=== PATIENT | male | born 1935 | race Caucasian/White ===

== ENCOUNTER → 2016-06-19 | Outpatient (CLI) | payer BC, MEDICARE ==
[~2016-06-19] MED LIST: ACET65TA; ASPI81TA83; BACITAB3 PO; CHLO25TA PO; DEXA2TA PO; DEXA4TA PO; DIOV160T6 PO; DIOV80TA; FISHCAP; IMMODIUM; LEVA750T PO; LEVO750T33 PO; LIPI20TA; MICR10CA PO; OXYC-517 PO; PROC10TA PO; SIMV20TA2 PO; TERA5CA PO; TERA5CAP; TERAZOSIN; THERGRAN; VIBR100C; VITMTA PO; [UNRECOGNIZED DRUG - OTHER] PO
--- NOTE | 2016-06-19 10:43 | REP ---
MRI BRAIN WITHOUT AND WITH CONTRAST: HISTORY: Glioblastoma. COMPARISON: 01/10/2016 and 04/03/2016. CONTRAST: ProHance 15 mL. The patient is status post right temporal craniotomy. A ring enhancing mass is present in the right temporal lobe. This measures 1.6 cm in transverse by 4.5 cm in AP by 2.2 cm in cephalocaudal dimensions and is unchanged in size compared to the previous study. The degree of enhancement is increased compared to the previous study. Increased signal intensity is present in the surrounding right temporal lobe. There is mass effect with partial effacement of the overlying cortical sulci. There is no midline shift. A 6 mm focus of enhancement is present in the anterior right parietal lobe. This is unchanged in size, however, the degree of enhancement is increased compared to the previous study. Increased signal intensity on T2-weighted images is present in the periventricular and subcortical white matter. This is likely secondary to chemo and/or radiation therapy. The ventricular system and cortical sulci are dilated consistent with mild volume loss. There is no extracerebral collection. Mucosal thickening is present in the maxillary sinuses. IMPRESSION: There has been no change in size of the right temporal lobe glioblastoma, however, the degree of enhancement is increased compared to the previous study. Signed by Raimundo Shukla MD 06/19/2016 10:45 A
== END ==
LOC: M RAD 09:06
PROVIDERS: ATTEND Specialist
DX: C71.9 Malignant neoplasm of brain, unspecified (principal)
CPT/HCPCS: 70553; A9576

== ENCOUNTER 2016-10-06 16:26 | Emergency (ER) | payer MEDICARE, OTHER ==
[~2016-10-06] VITALS: Ht 177.8 cm; Wt 73.5 kg
[2016-10-06] MEDS ORDERED: AMLO5TAB2 PO (16:34)
[2016-10-06] MEDS ORDERED: PANT40TA2 PO (16:36)
[2016-10-06 17:19] LABS: BASO % 0.1 % (0.0-1.0); EOS # 0.1 K/mm3 (0.0-0.50); EOS % 1.2 % (0.0-3.0); LARGE UNSTAINED CELL # 0.1 K/mm3 (0.0-0.4); LYMPH # 1.7 K/mm3 (1.5-4.5); MEAN CORPUSCULAR HEMOGLOBIN 30.6 pg (27.0-33.0); MEAN CORPUSCULAR HGB CONC 34.3 g/dl (32.0-36.5); MEAN CORPUSCULAR VOLUME 89.2 fl (80.0-96.0); MONO # 0.5 K/mm3 (0.0-0.8); MONO % 7.5 % (0.0-5.0); NEUTROPHILS # 4.3 K/mm3 (1.8-7.7); NEUTROPHILS % 64.2 % (36.0-66.0); PLATELET COUNT, AUTOMATED 132 k/mm3 (150-450); RED CELL DISTRIBUTION WIDTH 13.3 % (11.5-14.5); WHITE BLOOD COUNT 6.7 K/mm3 (4.0-10.0)
[2016-10-06 18:01] LABS: ALBUMIN 3.6 GM/DL (3.2-5.2); ALBUMIN/GLOBULIN RATIO 1.16 (1.00-1.93); ALKALINE PHOSPHATASE 96 U/L (45-117); ALT/SGPT 22 U/L (12-78); ANION GAP 6 MEQ/L (8-16); AST/SGOT 16 U/L (15-37); BILIRUBIN,DIRECT < 0.1 MG/DL (0.0-0.2); BILIRUBIN,TOTAL 0.3 MG/DL (0.2-1.0); BLOOD UREA NITROGEN 29 MG/DL (7-18); CALCIUM LEVEL 8.5 MG/DL (8.8-10.2); CARBON DIOXIDE LEVEL 29 MEQ/L (21-32); CHLORIDE LEVEL 105 MEQ/L (98-107); CREATININE FOR GFR 1.02 MG/DL (0.70-1.30); FREE T4 0.97 NG/DL (0.76-1.46); GLOMERULAR FILTRATION RATE > 60.0 (>35); GLUCOSE, FASTING 97 MG/DL (83-110); MAGNESIUM LEVEL 2.1 MG/DL (1.8-2.4); POTASSIUM SERUM 3.3 MEQ/L (3.5-5.1); SODIUM LEVEL 140 MEQ/L (136-145); TOTAL PROTEIN 6.7 GM/DL (6.4-8.2)
[2016-10-06] MEDS ORDERED: POTASSIUM CHLORIDE 10 MEQ SR TABLET PO ONE (18:30)
[2016-10-06] MEDS ORDERED: LISINOPRIL 10 MG TAB PO ONE (18:30)
[2016-10-06] MEDS ORDERED: K-TA1TAB PO (18:33)
[2016-10-06 18:58] VITALS: BP 168/72
--- NOTE | 2016-10-06 19:42 | ECGEPIP ---
Stationary ECG Study [facility] - ED Test Date: 2016-10-06 Pat Name: HILDA CARMEN Department: Room: - Gender: M [employer]ive[employer]: EDWARD : 1935 Requested By: Leonila Perez Order Number: [id number] Reading MD: Meño Bains Measurements Intervals [place] Rate: 65 P: 66 [place]: 165 QRS: 52 QRSD: 107 T: 48 QT: 395 QTc: 412 Interpretive Statements SINUS RHYTHM WITH FREQUENT VENTRICULAR PREMATURE COMPLEXES ABNORMAL RHYTHM ECG Electronically Signed On 10-06-2016 19:42:08 EDT by Meño Bains
== END 2016-10-06 19:01 | disposition home or self-care (01) ==
LOC: M ED 18:24
DX: I49.3 Ventricular premature depolarization (principal); I51.9 Heart disease, unspecified; E87.6 Hypokalemia; I25.10 Atherosclerotic heart disease of native coronary artery without angina pectoris; I50.9 Heart failure, unspecified; I25.2 Old myocardial infarction; E78.00 Pure hypercholesterolemia, unspecified; N40.0 Benign prostatic hyperplasia without lower urinary tract symptoms; Z79.899 Other long term (current) drug therapy